=== PATIENT | female | born 1975 | race African-American/Black ===

== ENCOUNTER 2021-05-03 23:28 | Emergency (ER) | payer MEDICAID ==
[~2021-05-03] VITALS: Ht 167.6 cm; Wt 63.5 kg
--- NOTE | 2021-05-03 23:45 | NUR ---
PT AMBULATED TO ER WITH C/O TOOTHACHE. DR. CARTWRIGHT AT BEDSIDE, MSE IN PROGRESS.
[2021-05-03] MEDS ORDERED: OXYC-128 PO (23:57)
[2021-05-03] MEDS ORDERED: CLIN300C3 PO (23:57)
[2021-05-04] MEDS ORDERED: CLINDAMYCIN HCL 150 MG CAPSULE PO ONE
[2021-05-04] MEDS ORDERED: OXYCODONE/APAP 5-325 MG TABLET PO ONE
[2021-05-04] MEDS ORDERED: CLINDAMYCIN HCL 150 MG CAPSULE ONE (00:05)
[2021-05-04] MEDS ORDERED: OXYCODONE/APAP 5-325 MG TABLET ONE (00:05)
--- NOTE | 2021-05-04 00:11 | NUR ---
Patient given written and verbal discharge instructions. Denies any pain/discomfort upon discharge. Patient verbalizes understanding of instructions. Patient is ambulatory with steady gait. Refuses offer of half-way placement. Patient given list of available shelters in surrounding area.
[2021-05-04 00:12] VITALS: BP 130/76
== END 2021-05-04 00:13 | disposition home or self-care (01) ==
LOC: ER 23:32
DX: K04.7 Periapical abscess without sinus (principal); Z59.00 Homelessness unspecified; F15.90 Other stimulant use, unspecified, uncomplicated
CPT/HCPCS: A4663